=== PATIENT | female | born 1935 | race Caucasian/White ===

== ENCOUNTER 2017-09-01 18:03 | Emergency (ER) | payer MEDICARE, OTHER ==
[~2017-09-01] VITALS: Ht 170.2 cm; Wt 76.7 kg
--- NOTE | 2017-09-01 18:26 | NUR ---
SENT FROM [facility] "PARTIALLY" DISLODGED GT,. UPON ASSESSMENT, PT NOTED WITH GT IN PLACED UPON RECEIVED, MD CAZARES ORDERED KUB
[2017-09-01] MEDS ORDERED: DIATR MEGLU/DIATRIZOATE SODIUM 30 ML BOTTLE (GASTROGRAPHIN) ONE (18:53)
--- NOTE | 2017-09-01 19:01 | NUR ---
XRAY AT FOR KUB
--- NOTE | 2017-09-01 19:12 | NUR ---
REPORT GIVEN TO YANETH ARRIETA
--- NOTE | 2017-09-01 20:10 | NUR ---
PT RESTING COMFORTABLY. WAITING FOR KUB RESULTS OF PATENCY OF G-TUBE. CONTINUE TO MNITOR
--- NOTE | 2017-09-01 20:45 | NUR ---
ETA 90MINUTES FROM [facility]; REF NUMBER [id number]
--- NOTE | 2017-09-01 20:59 | NUR ---
Dasia laguna in [facility] - 09/01/17 at 2100 by RAFA REQUESTED TRANSPORTATION BACK TO [facility] VIA [facility]
--- NOTE | 2017-09-01 22:18 | NUR ---
G-TUBE PATENT. AMBULANCE ARRIVES AND TRANSFERS PT BACK TO SNF.
[2017-09-01 22:43] VITALS: BP 148/86
== END 2017-09-01 22:44 | disposition home or self-care (01) ==
LOC: ER 18:05
DX: Z43.1 Encounter for attention to gastrostomy (principal); Z88.5 Allergy status to narcotic agent
CPT/HCPCS: 74018; 99283; A4606; Q9963; Z7610

== ENCOUNTER 2017-09-18 19:40 | Emergency (ER) | payer MEDICARE, OTHER ==
[~2017-09-18] VITALS: Ht 162.6 cm; Wt 84.4 kg
--- NOTE | 2017-09-18 19:45 | NUR ---
ISAIAS DALLAS FROM [facility] FOR GTUBE MALFUNCTION. SEEN BY MD FOR EVAL. SAFETY AND COMFORT MEASURES PROVIDED. WILL MONITOR.
[2017-09-18] MEDS ORDERED: DIATR MEGLU/DIATRIZOATE SODIUM 30 ML BOTTLE (GASTROGRAPHIN) ONE (19:54)
--- NOTE | 2017-09-18 20:03 | NUR ---
VITO DONE AT BS.
--- NOTE | 2017-09-18 20:07 | NUR ---
Patient discharged to home in stable condition. Written and verbal after care instructions given. Patient verbalizes understanding of instruction.
[2017-09-18 20:45] VITALS: BP 130/72
== END 2017-09-18 20:45 ==
LOC: ER 19:41
DX: K94.23 Gastrostomy malfunction (principal); E03.9 Hypothyroidism, unspecified; E11.9 Type 2 diabetes mellitus without complications; F03.90 Unspecified dementia, unspecified severity, without behavioral disturbance, psychotic disturbance, mood disturbance, and anxiety; F32.9 Major depressive disorder, single episode, unspecified; I48.91 Unspecified atrial fibrillation; Z43.1 Encounter for attention to gastrostomy; Z88.5 Allergy status to narcotic agent
CPT/HCPCS: 74018; A4606; Q9963; Z7610